=== PATIENT | male | born 1955 | race Caucasian/White ===

== ENCOUNTER 2018-04-09 13:40 | Inpatient (IN) ==
--- NOTE | 2018-04-09 13:54 | Emergency Department Note ---
Disposition Clinical Impression: Fracture of hip Qualifiers: Encounter type: initial encounter Fracture type: closed Laterality: right Qualified Code(s): S72.001A - Fracture of unspecified part of neck of right femur, initial encounter for closed fracture Disposition: Admitted As Inpatient Condition: Good Referrals: Darin Dowell MD [Primary Care Provider] - Forms: ED Satisfaction Letter Time of Disposition: 14:40 General Adult HPI - General Chief complaint: ED Extremity Injury, Lower Stated complaint: right hip injury Time Seen by Provider: 04/09/18 13:45 Source: patient Nursing Notes Reviewed: Yes Vital Signs Reviewed: Yes - History of Present Illness HPI Narrative: Patient presents to the ED with a chief complaint of right leg pain. Patient had a fall. He was inside a full power washing might out of it. He states he fell landed right on his right hip. No pain in his neck no pain in his back. He did not hit his head. No loss of consciousness. - Related Data Home Medications Medication Instructions Recorded Confirmed Citalopram [CeleXA] 20 mg PO DAILY 04/09/18 04/09/18 Levothyroxine [Synthroid] 150 mcg PO DAILY 04/09/18 04/09/18 Allergies Allergy/AdvReac Type Severity Reaction Status Date / Time Sulfa (Sulfonamide Allergy Hives Verified 01/27/16 23:32 Antibiotics) All systems ED: reviewed and negative except as stated. Constitutional: Denies: fever Cardiovascular: Denies: chest pain Respiratory: Denies: dyspnea Past Medical History - Past Medical History Attestation: Yes The following information was validated with the patient. Source: patient Medical history: Reports: cancer, kidney stones, thyroid disease Psychiatric history: Reports: no psych history - Social History Smoking Status: Never smoker Alcohol use: Reports: none Drug use: Reports: none Physical Exam Patient laying on the bed in no acute distress. Right leg shortened and externally rotated. Pain with log rolling. DP and PT pulses intact. - General Limitations: no limitations General appearance: alert, in no apparent distress - Head Head exam: atraumatic - Eye Eye exam: Present: normal appearance - Neck Neck exam: Present: normal inspection. Absent: tenderness - Chest Chest inspection: Present: normal inspection - Respiratory Respiratory exam: Present: normal lung sounds bilaterally - Cardiovascular Cardiovascular exam: Present: regular rate, normal rhythm, normal heart sounds - Abdominal Exam Abdominal exam: Present: soft, Non-Tender, other (Urostomy and colostomy bags.) - Neurological Exam Neurological exam: Present: alert, oriented X3 - Psychiatric Psychiatric exam: Present: normal affect - Skin Skin exam: Present: warm, dry Course - Consultations Consultation #1: Dr Russo consulted by myself. Will see today. Time: 15:14 Consultation #2: Dr Gutierrez accepts Time: 15:48 Vital Signs Temperature 98 F 04/09/18 13:46 Pulse Rate 71 04/09/18 13:46 Respiratory Rate 18 04/09/18 13:46 Blood Pressure 135/75 04/09/18 13:46 O2 Sat by Pulse Oximetry 98 04/09/18 13:46 Temperature 98 F 04/09/18 13:46 Pulse Rate 66 04/09/18 15:45 Respiratory Rate 18 04/09/18 15:45 Blood Pressure 125/67 04/09/18 15:45 O2 Sat by Pulse Oximetry 98 04/09/18 13:46 Oxygen Delivery Oxygen Delivery Room Air Medical Decision Making - Lab Data Result diagrams: 04/09/18 14:49 04/09/18 14:49 Lab Results 04/09/18 04/09/18 Range/Units 14:49 14:49 WBC 20.1 H (4.3-11.1) K/mcL RBC 4.69 (4.19-5.50) M/mcL Hgb 13.7 (12.9-16.9) g/dL Hct 42.4 (37.5-50.1) % MCV 90.4 (83.0-100.0) fL MCH 29.2 (28.0-33.3) pg MCHC 32.3 (31.6-35.5) g/dL RDW 13.5 (11.5-14.5) % Plt Count 230 (140-400) K/mcL MPV 10.1 (9.4-12.4) fL Sodium 139 (136-145) mEq/L Potassium 3.6 (3.5-5.1) mEq/L Chloride 108 H (98-107) mEq/L Carbon Dioxide 27 (23-29) mEq/L BUN 16 (8-23) mg/dL Creatinine 1.23 (0.70-1.30) mg/dL Est GFR ( Amer) > 60 (> 60) Est GFR (Non-Af Amer) 59 L (> 60) BUN/Creatinine Ratio 13 (6-26) Glucose 121 H (70-105) mg/dL Calculated Osmolality 290 (280-300) Calcium 9.2 (8.6-10.3) mg/dL - Radiology Data Radiology results reviewed: Yes I reviewed the patient's radiology results. Femur X-Ray 04/09/18 13:53 IMPRESSION: Acute traumatic closed minimally angulated nondisplaced right intertrochanteric femoral fracture. No hip dislocation. D/ / Cindy Jaffe MD / Cindy Jaffe MD Interpreting Provider: Cindy Jaffe MD Pelvis X-Ray 04/09/18 13:53 IMPRESSION: Acute traumatic closed minimally angulated nondisplaced right intertrochanteric femoral fracture. No hip dislocation. D/ / Cindy Jaffe MD / Cindy Jaffe MD Interpreting Provider: Cindy Jaffe MD Femur X-Ray 04/09/18 13:53 IMPRESSION: Acute traumatic closed minimally angulated nondisplaced right intertrochanteric femoral fracture. No hip dislocation. D/ / Cindy Jafef MD / Cindy Jaffe MD Interpreting Provider: Cindy Jaffe MD Pelvis X-Ray 04/09/18 13:53 IMPRESSION: Acute traumatic closed minimally angulated nondisplaced right intertrochanteric femoral fracture. No hip dislocation. D/ / Cindy Jaffe MD / Cindy Jaffe MD Interpreting Provider: Cindy Jaffe MD Chest X-Ray 04/09/18 14:33 IMPRESSION: No acute process. D/ / Jayson Vasquez MD / Jayson Vasquez MD Interpreting Provider: Jayson Vasquez MD - EKG Data EKG #1 EKG attestation: Yes I reviewed and interpreted this EKG. EKG results narrative: Normal sinus rhythm at 65. No ST segment changes. No T-wave inversions. Normal axis. QT 406 with a QTC of 417. Critical Care Time Critical Care Time: No
[2018-04-09 15:15] LABS: Hematocrit 42.4 % (37.5-50.1); Hemoglobin 13.7 g/dL (12.9-16.9); Mean Corpuscular HGB Conc 32.3 g/dL (31.6-35.5); Mean Corpuscular Hemoglobin 29.2 pg (28.0-33.3); Mean Corpuscular Volume 90.4 fL (83.0-100.0); Mean Platelet Volume 10.1 fL (9.4-12.4); Platelet Count 230 K/mcL (140-400); Red Blood Count 4.69 M/mcL (4.19-5.50); Red Cell Distribution Width 13.5 % (11.5-14.5)
[2018-04-09 15:25] LABS: BUN/Creatinine Ratio 13 (6-26); Blood Urea Nitrogen 16 mg/dL (8-23); Calcium 9.2 mg/dL (8.6-10.3); Carbon Dioxide 27 mEq/L (23-29); Chloride 108 mEq/L (98-107); Glucose 121 mg/dL (70-105); Osmolality,Calculated 290 (280-300); Potassium 3.6 mEq/L (3.5-5.1); Sodium 139 mEq/L (136-145); eGFR For African Americans > 60 (> 60); eGFR For Non-African Americans 59 (> 60)
[2018-04-09] MEDS ORDERED: *HR* FentaNYL (PF) 100 MCG/2 ML VIAL IVP ONE (15:36)
--- NOTE | 2018-04-09 18:56 | Internal Med History&Physical ---
Date of Encounter: 04/09/18 Time of Encounter: 18:00 Internal Medicine - H&P: HPI Chief complaint: Right hip pain Admitted From: Home History of present illness: Patient is a 63-year-old male with past medical history significant for colon cancer, hypothyroid and mood disorder who presents to the ER on 04/09/18 due to right hip pain status post fall. Patient was cleaning pool and they will injuring his right hip. In the ER, imaging showed closed minimally angulated nondisplaced right intertrochanteric femur fracture with no hip is location. Orthopedic was consulted from the ER and patient will be admitted to medical surgical floor. Past Med Surg Social Fam HX - Past Medical History Medical history: cancer, kidney stones, thyroid disease Additional medical history: urostomy, colostomy second to colon cancer, Psychiatric history: no psych history - Past Surgical History Additional surgical history: PROSTATE, BLADDER AND RECTUM REMOVED DUE TO CANCER IN 2011 - Social History Smoking Status: Never smoker Smokeless Tobacco Status: No Alcohol use: none Drug use: none - Family History Mother Name: BRIAN Age: 51 Family Member Ethnicity: Non- Living Status: Age at : 51 Cause of : [place] Hx Family Cardiac Disorders: Yes ([place]) Hx Family Respiratory Disorders: No Hx Family Cancer: No Hx Family GI Disorders: No Hx Family Genitourinary Disorders: No Hx Family Endocrine Disorder: No Hx Family Musculoskeletal Disorders: No Hx Family Neuromuscular Disorders: No Hx Family Neurologic Disorders: No Hx Family HEENT Disorders: No Hx Family Autoimmune Disorders: No Hx Family Reproductive Disorders: No Hx Family Psychosocial Disorders: No Hx Family Medical Disorders: No Internal Medicine - H&P: Meds Citalopram [CeleXA] 20 mg PO DAILY 04/09/18 [History] Cyanocobalamin (Vitamin B-12) [Vitamin B-12] 1,000 mcg PO DAILY 04/09/18 [ History] Levothyroxine [Synthroid] 150 mcg PO DAILY 04/09/18 [History] Vitamin D3 1,000 mcg PO DAILY 04/09/18 [History] 3 Allergy/AdvReac Type Severity Reaction Status Date / Time Sulfa (Sulfonamide Allergy Hives Verified 01/27/16 23:32 Antibiotics) All Systems PM: A 10-system review of systems was performed and is negative for pertinent findings except as documented above in the HPI. - Constitutional Vitals: Temp Pulse Resp BP Pulse Ox 98 F 66 20 124/70 98 04/09/18 13:46 04/09/18 15:45 04/09/18 16:12 04/09/18 16:12 04/09/18 13:46 General appearance: Present: A&O X 3, no acute distress - Eye Eye exam: Present: normal appearance - ENT ENT exam: Present: mucous membranes moist - Respiratory Respiratory exam: Present: CTAB. Absent: accessory muscle use, rales, rhonchi, wheezes - Cardiovascular Cardiovascular exam: Present: RRR, +S1, +S2. Absent: diastolic murmur, gallop, rubs, systolic murmur - Extremities Exam Extremities exam: Absent: pedal edema - Neurological Exam Neurological exam: Present: no focal deficits - Psychiatric Psychiatric exam: Present: normal mood - Skin Skin exam: Present: normal color Internal Med - H&P Results - Labs CBC & Chem 7: 04/09/18 14:49 04/09/18 14:49 - Assessment and plan (1) Fracture of hip Current Visit: Yes Status: Acute Assessment and plan: In the ER, imaging showed closed minimally angulated nondisplaced right intertrochanteric femur fracture with no hip is location. Orthopedics consulted and appreciate recommendations Qualifiers: Encounter type: initial encounter Fracture type: closed Laterality: right Qualified Code(s): S72.001A - Fracture of unspecified part of neck of right femur, initial encounter for closed fracture (2) Hypothyroid Current Visit: Yes Status: Acute Assessment and plan: Continue levothyroxine Qualifiers: Hypothyroidism type: unspecified Qualified Code(s): E03.9 - Hypothyroidism , unspecified (3) Mood disorder Current Visit: Yes Status: Acute Assessment and plan: Continue home medications (4) DVT prophylaxis Current Visit: Yes Status: Acute Assessment and plan: Subcutaneous heparin - Time Spent With Patient Total time spent is greater than 50% in coordination of care (as documented) at patient's floor/unit and/or counseling patient:
[2018-04-09] MEDS ORDERED: Naloxone 0.4 MG/ML INJ IVP PRN (19:07)
[2018-04-09] MEDS ORDERED: Acetaminophen 325 MG TABLET PO PRN (21:10)
[2018-04-09] MEDS ORDERED: *HR* OxyCODONE/APAP 10/325 TABLET PO PRN (21:12)
[2018-04-09] MEDS: *HR* HYDROcodone/Acet 7.5/325 mg TABLET PO PRN (21:25)
[2018-04-09] MEDS: *HR* Heparin 5,000 UNIT/ML VIAL SQ SCH (21:26)
--- NOTE | 2018-04-09 21:28 | Orthopedic Consult Note ---
Date of Encounter: 04/09/18 Time of Encounter: 18:00 Assessment and Plan (1) Fracture of hip Current Visit: Yes Status: Acute I did discuss the diagnosis in detail the patient. He has a right intertrochanteric hip fracture. My recommendation was for internal fixation of the right hip in order to stabilize the right hip for pain control and to help facilitate nursing care. The risks discussed included but were not limited to stiffness, bleeding, infection, blood clots, damage to neurovascular structures , tendons, ligaments, and bone. Also discussed was the risk of continued symptoms and possible need for further procedures. I did discuss the anesthesia risks including stroke, heart attack, and . I did discuss the reasonable, foreseeable postoperative course with the patient. He did wish to proceed and consent was obtained. Qualifiers: Encounter type: initial encounter Fracture type: closed Laterality: right Qualified Code(s): S72.001A - Fracture of unspecified part of neck of right femur, initial encounter for closed fracture History of Present Illness HPI: Mr. Burnett is a 63 year old male who is admitted to the hospitalist after a fall while trying to clean the pool. He sustained a right nondisplaced intertrochanteric hip fracture. I was consulted to assist in the evaluation and management of the patient. He is fairly active at baseline and lives independently. He complains of isolated right groin pain. It is worse with any movement and better with rest. No numbness, tingling, or any other associated signs or symptoms or modifying factors. He denies any other pain or injuries. Past Med Surg Social Fam HX - Past Medical History Medical history: cancer, kidney stones, thyroid disease Additional medical history: urostomy, colostomy second to colon cancer, Psychiatric history: no psych history - Past Surgical History Additional surgical history: PROSTATE, BLADDER AND RECTUM REMOVED DUE TO CANCER IN 2012 - Social History Smoking Status: Never smoker Smokeless Tobacco Status: No Alcohol use: none Drug use: none - Family History Mother Name: BRIAN Age: 51 Family Member Ethnicity: Non- Living Status: Age at : 51 Cause of : [place] Hx Family Cardiac Disorders: Yes ([place]) Hx Family Respiratory Disorders: No Hx Family Cancer: No Hx Family GI Disorders: No Hx Family Genitourinary Disorders: No Hx Family Endocrine Disorder: No Hx Family Musculoskeletal Disorders: No Hx Family Neuromuscular Disorders: No Hx Family Neurologic Disorders: No Hx Family HEENT Disorders: No Hx Family Autoimmune Disorders: No Hx Family Reproductive Disorders: No Hx Family Psychosocial Disorders: No Hx Family Medical Disorders: No Medications and Allergies Citalopram [CeleXA] 20 mg PO DAILY 04/09/18 [History] Cyanocobalamin (Vitamin B-12) [Vitamin B-12] 1,000 mcg PO DAILY 04/09/18 [ History] Levothyroxine [Synthroid] 150 mcg PO DAILY 04/09/18 [History] Vitamin D3 1,000 mcg PO DAILY 04/09/18 [History] 3 Allergy/AdvReac Type Severity Reaction Status Date / Time Sulfa (Sulfonamide Allergy Hives Verified 01/27/16 23:32 Antibiotics) All Systems Reviewed: Constitutional and musculoskeletal systems were reviewed and are negative unless otherwise stated in history of present illness. Physical Exam - Constitutional Vitals: Temp Pulse Resp BP Pulse Ox 99.4 F 75 16 147/68 95 04/09/18 19:28 04/09/18 19:28 04/09/18 19:28 04/09/18 19:28 04/09/18 19:28 Constitutional -Vitals reviewed -The patient is well developed and well nourished. -Mood is pleasant. -The patient is well groomed. Psychiatric -The patient is fully alert and oriented x 3. Respiratory: -Respiratory effort normal Abdomen: -Soft abdomen -Non tender -Non distended: Left upper extremity: -No deformities. The overlying skin is intact. No obvious signs of acute trauma. -No tenderness to palpation throughout. -No significant pain with passive motion of the shoulder, elbow, wrist, and fingers within the limits of the bed. -Able to make an "OK" sign, cross the index and long fingers, and extend the thumb. -Sensation grossly intact to light touch throughout the median, radial, and ulnar distributions. -Radial pulse is present; Fingers have good capillary refill. Right upper extremity: -No deformities. The overlying skin is intact. No obvious signs of acute trauma. -No tenderness to palpation throughout. -No significant pain with passive motion of the shoulder, elbow, wrist, and fingers within the limits of the bed. -Able to make an "OK" sign, cross the index and long fingers, and extend the thumb. -Sensation grossly intact to light touch throughout the median, radial, and ulnar distributions. -Radial pulse is present; Fingers have good capillary refill. Left lower extremity: -No deformities. The overlying skin is intact. No obvious signs of acute trauma. -No tenderness to palpation throughout. -No pain with passive motion of the hip, knee, ankle, and toes within the limits of the bed. -No pain with axial loading of the thigh. -Able to dorsiflex and plantarflex the ankle and toes. -Sensation is grossly intact to light touch throughout the sural, saphenous, superficial peroneal, and deep peroneal distributions. -Toes have good capillary refill. Right lower extremity: -The extremity is shortened and externally rotated. The overlying skin is intact. -There is tenderness in the groin region as well as the proximal lateral thigh. -I did not range the hip due to the known fracture. -No tenderness along the distal thigh, leg, ankle, foot, or toes. -Able to dorsiflex and plantarflex the ankle and toes. -Sensation is grossly intact to light touch throughout the sural, saphenous, superficial peroneal, and deep peroneal distributions. -Toes have good capillary refill. Diagnostic Imaging: I did personally review and interpret x-rays of the right hip and femur which show a nondisplaced intertrochanteric hip fracture Results - Labs Result Diagrams: 04/10/18 01:05 04/10/18 01:05 Labs: Abnormal lab results WBC 20.1 K/mcL (4.3-11.1) H 04/09/18 14:49 Chloride 108 mEq/L (98-107) H 04/09/18 14:49 Est GFR (Non-Af Amer) 59 (> 60) L 04/09/18 14:49 Glucose 121 mg/dL (70-105) H 04/09/18 14:49 All other labs normal. Consult Discharge Plan - Plan Referrals: Darin Dowell MD [Primary Care Provider] -
--- NOTE | 2018-04-09 22:13 | Anesthesia Evaluation PreOp ---
<Kaleb Willson - Last Filed: 04/09/18 22:15> Date of Encounter: 04/09/18 Time of Encounter: 22:11 - Past History Planned Operation: Right Hip Nailing Cardiac History: Denies any Significant Hx Pulmonary History: Denies Any Significant HX RADAR TECHNICIAN History: Other (Mood disorder, Colon/ Bladder CA) Other Medical History: Thyroid (Hypo) Anesthesia History: No Prior Anesthetic Complications, Past Anesthesia (PROSTATE , BLADDER AND RECTUM REMOVED DUE TO CANCER IN 2011, urostomy, colostomy) Alcohol Use: none Drug use: none Medications and Allergies Citalopram [CeleXA] 20 mg PO DAILY 04/09/18 [History] Cyanocobalamin (Vitamin B-12) [Vitamin B-12] 1,000 mcg PO DAILY 04/09/18 [ History] Levothyroxine [Synthroid] 150 mcg PO DAILY 04/09/18 [History] Vitamin D3 1,000 mcg PO DAILY 04/09/18 [History] 3 Allergy/AdvReac Type Severity Reaction Status Date / Time Sulfa (Sulfonamide Allergy Hives Verified 01/27/16 23:32 Antibiotics) - Meds/Allergy Pre-op Review Medications Reviewed: Yes Allergies Reviewed: Yes Beta Blockers on Current Med List: No Anesthesia Results - Labs 04/09/18 14:49 04/09/18 14:49 Anesthesia Exam Vital Signs/O2 Sat, Most Current Temp Pulse Resp BP Pulse Ox 99.4 F 75 16 147/68 93 04/09/18 19:28 04/09/18 19:28 04/09/18 19:28 04/09/18 19:28 04/09/18 21:45 <Linh Bello - Last Filed: 04/10/18 17:37> Date of Encounter: 04/10/18 - Past History Cardiac History: Other (good functional capacity) Pulmonary History: Former smoker (quit 10 years ago) RADAR TECHNICIAN History: Other Anesthesia Results - Labs 04/10/18 01:05 04/10/18 01:05 - Imaging EKG: report reviewed, image reviewed (SR) Anesthesia Exam Last Vital Signs Temp 98.5 F 04/10/18 14:53 Pulse 60 04/10/18 14:53 Resp 16 04/10/18 14:53 BP 149/67 04/10/18 14:53 Pulse Ox 99 04/10/18 14:53 Weight: 66 kg NPO (# of Hours): > 8 hrs - HEENT Pupil (Motor): Pupils equal, EOMI Mallampati: II Teeth: Missing, Poor dentition Oral Opening: Greater than 3 - RADAR TECHNICIAN LOC: Oriented - Cardiac Rhythm: Regular Murmur: None - Pulmonary Breath Sounds: bilateral Clear Respiratory Effort: Symmetrical Anesthesia Assess/Plan ASA Score: 3 Modified Ike Scale for Level of Consciousness: Cooperative, oriented, and tranquil Anesthetic Plan: General Monitoring Plan: Standard Monitors Recovery Plan: PACU
[2018-04-10 01:37] LABS: Basophils # 0.1 K/mcL (0.0-0.2); Basophils % 0.4 %; Eosinophils # 0.1 K/mcL (0.0-0.6); Eosinophils % 0.6 %; Hematocrit 40.5 % (37.5-50.1); Hemoglobin 13.4 g/dL (12.9-16.9); Immature Granulocytes % 0.4 % (0-4); Lymphocytes # 1.7 K/mcL (0.6-4.6); Lymphocytes % 10.7 %; Mean Corpuscular HGB Conc 33.1 g/dL (31.6-35.5); Mean Corpuscular Hemoglobin 29.7 pg (28.0-33.3); Mean Corpuscular Volume 89.8 fL (83.0-100.0); Mean Platelet Volume 10.3 fL (9.4-12.4); Monocytes # 1.2 K/mcL (0.0-1.3); Monocytes % 7.7 %; Neutrophils # 12.5 K/mcL (1.6-8.9); Platelet Count 222 K/mcL (140-400); Red Blood Count 4.51 M/mcL (4.19-5.50); Red Cell Distribution Width 13.4 % (11.5-14.5); Segmented Neutrophils % 80.2 %
[2018-04-10 01:52] LABS: BUN/Creatinine Ratio 12 (6-26); Blood Urea Nitrogen 14 mg/dL (8-23); Calcium 8.9 mg/dL (8.6-10.3); Carbon Dioxide 28 mEq/L (23-29); Chloride 104 mEq/L (98-107); Glucose 119 mg/dL (70-105); Osmolality,Calculated 288 (280-300); Potassium 3.5 mEq/L (3.5-5.1); Sodium 138 mEq/L (136-145); eGFR For African Americans > 60 (> 60); eGFR For Non-African Americans > 60 (> 60)
[2018-04-10] MEDS: *HR* Heparin 5,000 UNIT/ML VIAL SQ SCH ×2 (04:51→13:21)
[2018-04-10] MEDS ORDERED: Cholecalciferol (D-3) 1,000 UNIT TABLET PO SCH (09:00)
[2018-04-10] MEDS ORDERED: Cyanocobalamin (B-12) 1,000 MCG TABLET PO SCH (09:00)
--- NOTE | 2018-04-10 09:26 | Internal Med Progress Note ---
Date of Encounter: 04/10/18 Time of Encounter: 09:23 - Assessment and plan (1) Fracture of hip Current Visit: Yes Status: Acute Assessment and plan: closed minimally angulated nondisplaced right intertrochanteric femur fracture with no hip dislocation. Orthopedics on board and plan for ORIF today evening. Keep patient nothing by mouth, IV fluid normal 75 mL per hour, pain management. Will consult social organization professor for discharge plan and placement. Qualifiers: Encounter type: initial encounter Fracture type: closed Laterality: right Qualified Code(s): S72.001A - Fracture of unspecified part of neck of right femur, initial encounter for closed fracture (2) Hypothyroid Current Visit: Yes Status: Acute Assessment and plan: Continue levothyroxine Qualifiers: Hypothyroidism type: unspecified Qualified Code(s): E03.9 - Hypothyroidism , unspecified (3) Mood disorder Current Visit: Yes Status: Acute Assessment and plan: Stable. Continue home medications (4) DVT prophylaxis Current Visit: Yes Status: Acute Assessment and plan: Subcutaneous heparin, SCDs - Time Spent With Patient Total time spent is greater than 50% in coordination of care (as documented) at patient's floor/unit and/or counseling patient: 25 - 35 minutes - Subjective Interval history: Patient complained of mild tolerable pain at rest in the right hip. Denies fever chills nausea vomiting headache dizziness chest pain shortness of breath urinary or bowel complaint. Patient is nothing by mouth now. - Constitutional Vitals: Temp Pulse Resp BP Pulse Ox 98.6 F 61 18 141/72 98 04/10/18 06:28 04/10/18 06:28 04/10/18 06:28 04/10/18 06:28 04/10/18 06:28 General appearance: Present: A&O X 3, no acute distress Exam: General appearance: No acute distress, A&O X 3 Head exam: Atraumatic Eye exam: EOMI, PERRLA ENT exam: Moist oral mucosa Neck nontender, supple Respiratory exam: Clear to auscultation bilaterally Cardiovascular exam: Regular rate and rhythm, no systolic murmur Abdominal exam: Soft, nontender, nondistended, positive bowel sounds Extremities exam: No calf tenderness, no pedal edema Present,Peripheral pulses palpable. Right hip tenderness but no open wound Skin-no rash, warm, dry, intact Neurological exam: Alert, awake, oriented 3, CN II-XII intact, no focal deficits. No facial droop. Normal speech. Internal Medicine: Result - Labs CBC & Chem 7: 04/10/18 01:05 04/10/18 01:05 Labs: Short CBC 04/10/18 Range/Units 01:05 WBC 15.6 H (4.3-11.1) K/mcL Hgb 13.4 (12.9-16.9) g/dL Hct 40.5 (37.5-50.1) % Plt Count 222 (140-400) K/mcL Neutrophils # 12.5 H (1.6-8.9) K/mcL BMP 04/10/18 01:05 Sodium 138 Potassium 3.5 Chloride 104 Carbon Dioxide 28 BUN 14 Creatinine 1.18 Glucose 119 H Calcium 8.9 Consult Discharge Plan - Plan Referrals: Darin Dowell MD [Primary Care Provider] -
[2018-04-10] MEDS ORDERED: 0.9 % Sodium Chloride 1,000 ML IVC SCH (09:30)
[2018-04-10] MEDS: *HR* HYDROcodone/Acet 7.5/325 mg TABLET PO PRN (15:13)
[2018-04-10] MEDS ORDERED: Lidocaine -MPF 2% 2 ML VIAL ONE (17:40)
[2018-04-10] MEDS ORDERED: *HR* Rocuronium Bromide 50 MG/5 ML VIAL ONE (17:40)
[2018-04-10] MEDS ORDERED: Dexamethasone 4 MG/ML VIAL ONE (17:40)
[2018-04-10] MEDS ORDERED: Ondansetron 4 MG/2 ML VIAL ONE (17:40)
[2018-04-10] MEDS ORDERED: *HR* FentaNYL (PF) 100 MCG/2 ML VIAL ONE (17:41)
[2018-04-10] MEDS ORDERED: *HR* Propofol 200 MG/20 ML VIAL IVP ONE (17:41)
--- NOTE | 2018-04-10 17:52 | Electrocardiograph Report ---
[place] [id number] Test Date: 2018-04-09 Pat Name: Jerardo Burnett Department: 103 Room: [facility] Gender: M Land Title Examiner: FREDY : 1955 Requested By: Ariana See Order Number: [id number] Reading MD: Jerry Anderson Measurements Intervals [place] Rate: 65 P: 82 AL: 190 QRS: 83 QRSD: 102 T: 66 QT: 406 QTc: 417 Interpretive Statements SINUS RHYTHM Electronically Signed On 04-10-2018 17:51:03 EDT by Jerry Anderson
[2018-04-10] MEDS ORDERED: Acetaminophen IV 1,000 MG/100 ML INFUS..BTL ONE (18:00)
[2018-04-10] MEDS ORDERED: *HR* Promethazine 25 MG/ML VIAL IVP PRN ×2 (18:44→20:19)
[2018-04-10] MEDS ORDERED: *HR* OxyCODONE Immed Rel 5 MG TABLET PO PRN ×2 (18:44→20:19)
[2018-04-10] MEDS ORDERED: MORPHINE SUL Oral CONC 10 MG/0.5 ML ORAL.SYG SL PRN ×2 (18:44→20:19)
[2018-04-10] MEDS ORDERED: *HR* Labetalol 20 MG/4 ML SYRINGE IVP PRN (18:44)
[2018-04-10] MEDS ORDERED: *HR* Meperidine 25 MG/ML SYRINGE IVP PRN ×2 (18:44→20:19)
[2018-04-10] MEDS ORDERED: EPHEDrine 50 MG/ML VIAL ONE (19:01)
[2018-04-10] MEDS ORDERED: Neostigmine Methylsulfate 3 MG/3 ML SYRINGE ONE (19:04)
--- NOTE | 2018-04-10 19:46 | Orthopedic Operative Note ---
Date of procedure: 04/10/18 Procedure: OPERATIVE REPORT DATE OF PROCEDURE: 04/10/2018 SURGEON: Timothy Russo MD ELEVATOR STARTER(S): There were no assistants PREOPERATIVE DIAGNOSIS: Right intertrochanteric hip fracture POSTOPERATIVE DIAGNOSIS: Right intertrochanteric hip fracture PROCEDURE: Reduction and medullary nail fixation of the right hip ANESTHESIA: Gen. anesthesia PREOPERATIVE ANTIBIOTICS: 2 g of Ancef ESTIMATED BLOOD LOSS: 100 milliliters IMPLANTS: [place] 10 mm short nail with 125 degree lag screw angle; 105 mm lag screw PREOPERATIVE NOTE AND INDICATIONS: This patient is a 63-year-old male who sustained a right intertrochanteric hip fracture. He is indicated for surgery to reduce and stabilize the hip in order to provide pain control and to help facilitate nursing care. The surgical plan was discussed with the patient. The risks, benefits, alternatives, and potential complications of this procedure were discussed with the patient including injury to veins, arteries, nerves, tendons, ligaments, and bone. Also discussed were the risks of infection, bleeding, pain, blood clots, the possible need for a blood transfusion, the possible need for further procedures, heart attack, stroke, and . Additional risks include malunion , nonunion, hardware failure, and hardware irritation. All of this was explained in simple terms, and the patient verbalized understanding and wished to proceed. Consent was given to proceed with surgery. PROCEDURE: The patient was seen in the preoperative holding area where the identify and the consent were confirmed. The right hip was marked. Final questions were answered. The patient was brought back to the operating room and general anesthesia was administered. He was placed supine on the operating room table. The left lower extremity was lowered out of the way and the right lower shoulder moves placed in traction internal rotation and adduction. A huddle was performed with the patient and all vital surgical team members confirming patient identity, the correct procedure, and the correct operative site. The right hip was prepped and draped in the usual sterile fashion. A surgical time out was performed immediately preceding the incision with all personnel in the operating room to confirm patient identity, the correct operative site and extremity, correct radiographic studies, availability of appropriate surgical equipment, and agreement on the planned procedure. A longitudinal incision was made superior to the greater trochanter and dissection proceeded through the fascia. The guidewire was placed in the proximal femur and this was opened up. Reaming was done at 9 mm, 10 mm, and 11 mm and the definitive 10 mm nail was placed into the shaft of the femur. A second incision was made and the triple sleeve was used to place a guidewire into the femoral head. This was measured, drilled, and the definitive lag screw was placed. The fracture was then compressed and locked proximally. The second triple sleeve was used after a third incision and a definitive interlocking screw was placed in static mode. The wounds were copiously irrigated and the fascia was closed with 0 Vicryl stitches. The skin was closed with 3-0 Vicryl and edward. The patient was taken off the traction table and placed on his regular bed in good condition. The instrument, sponge, and needle counts were correct after wound closure. POST OPERATIVE PLAN: Weight Bearing: Weightbearing as tolerated to bilateral lower extremities DVT Prophylaxis: Ambulation Activity: Activities as tolerated with assistance Wound Care: Daily dressing changes Pain Control: Per the hospitalist Perioperative antibiotic prophylaxis: 2 doses of Ancef Social work for discharge planning Was there an expanded function dental assistant present: No Estimated blood loss (cc): 1
[2018-04-10] MEDS ORDERED: Acetaminophen 325 MG TABLET PO PRN (20:19)
[2018-04-10] MEDS ORDERED: *HR* OxyCODONE/APAP 10/325 TABLET PO PRN (20:19)
[2018-04-10] MEDS ORDERED: *HR* Labetalol 100 MG/20 ML MDV IVP PRN (20:19)
[2018-04-10] MEDS ORDERED: Naloxone 0.4 MG/ML INJ IVP PRN (20:19)
[2018-04-10] MEDS: 0.9 % Sodium Chloride 1,000 ML IVC SCH (20:30)
[2018-04-11 01:35] LABS: Hematocrit 36.9 % (37.5-50.1); Hemoglobin 11.9 g/dL (12.9-16.9)
[2018-04-11 01:56] LABS: BUN/Creatinine Ratio 11 (6-26); Blood Urea Nitrogen 14 mg/dL (8-23); Calcium 8.5 mg/dL (8.6-10.3); Carbon Dioxide 27 mEq/L (23-29); Chloride 103 mEq/L (98-107); Glucose 143 mg/dL (70-105); Osmolality,Calculated 287 (280-300); Potassium 3.4 mEq/L (3.5-5.1); Sodium 137 mEq/L (136-145); eGFR For African Americans > 60 (> 60); eGFR For Non-African Americans 60 (> 60)
[2018-04-11] MEDS: 0.9 % Sodium Chloride 1,000 ML IVC SCH (06:05)
--- NOTE | 2018-04-11 07:49 | Orthopedics Progress Note ---
Date of Encounter: 04/11/18 Time of Encounter: 07:48 - Assessment and Plan (1) Fracture of hip Current Visit: Yes Status: Acute I did discuss the diagnosis in detail the patient. He has a right intertrochanteric hip fracture. My recommendation was for internal fixation of the right hip in order to stabilize the right hip for pain control and to help facilitate nursing care. The risks discussed included but were not limited to stiffness, bleeding, infection, blood clots, damage to neurovascular structures , tendons, ligaments, and bone. Also discussed was the risk of continued symptoms and possible need for further procedures. I did discuss the anesthesia risks including stroke, heart attack, and . I did discuss the reasonable, foreseeable postoperative course with the patient. He did wish to proceed and consent was obtained. Qualifiers: Encounter type: initial encounter Fracture type: closed Laterality: right Qualified Code(s): S72.001A - Fracture of unspecified part of neck of right femur, initial encounter for closed fracture Subjective Interval history: S: Resting comfortably in bed. Significant improvement of the right hip O: Afebrile on the vital signs are stable Right hip dressing is clean, dry, and intact Neurovascularly intact to the right lower extremity X-rays show good position of the hip nail A: Post internal fixation of the right hip P: Weight bearing as tolerated on the bilateral lower extremities Physical therapy and occupational therapy when able Aspirin 325 mg by mouth twice a day for DVT prophylaxis Objective Vital signs: Vital Signs Temp Pulse Resp BP Pulse Ox 04/11/18 06:32 98.0 F 67 16 131/69 99 04/11/18 04:05 98.0 F 66 14 125/68 97 04/11/18 00:00 97.6 F 70 16 119/67 97 04/10/18 22:45 65 16 134/70 96 04/10/18 21:45 69 18 143/63 96 04/10/18 21:10 67 16 138/73 96 04/10/18 20:33 97.2 F L 61 16 145/70 99 04/10/18 20:00 98.1 F 64 18 158/79 98 04/10/18 19:50 92 18 158/71 98 04/10/18 19:40 62 18 145/82 97 04/10/18 19:30 99.2 F 73 12 135/83 95 04/10/18 14:53 98.5 F 60 16 149/67 99 04/10/18 11:37 98.4 F 65 14 143/81 96 Intake and Output 04/10/18 04/10/18 04/11/18 15:59 23:59 07:59 Intake Total 1100 / 1100 Output Total 200 / 200 350 / 350 300 / 300 Balance -200 / -200 -350 / -350 800 / 800 Intake: IV Fluids 1100 / 1100 0.9 % Sodium Chloride 1,000 ML 1000 / 1000 @ 75 mls/hr IVC .[id number] [facility] Rx #:[id number] Ancef 2,000 MG In 0.9 % Sodium 100 / 100 Chloride 100 ML @ 200 mls/hr IVPB Q8HR [facility] Rx#:[id number] Output: Estimated Blood Loss 100 / 100 Urostomy 200 / 200 250 / 250 300 / 300 - Labs CBC & BMP: 04/11/18 01:08 04/11/18 01:08 Labs: Abnormal lab results WBC 15.6 K/mcL (4.3-11.1) H 04/10/18 01:05 Hgb 11.9 g/dL (12.9-16.9) L D 04/11/18 01:08 Hct 36.9 % (37.5-50.1) L 04/11/18 01:08 Neutrophils # 12.5 K/mcL (1.6-8.9) H 04/10/18 01:05 Potassium 3.4 mEq/L (3.5-5.1) L 04/11/18 01:08 Glucose 143 mg/dL (70-105) H 04/11/18 01:08 Calcium 8.5 mg/dL (8.6-10.3) L 04/11/18 01:08 - VTE Documentation of Mechanical Device: Intermittent pneumatic compression device Consult Discharge Plan - Plan Referrals: Darin Dowell MD [Primary Care Provider] -
[2018-04-11] MEDS: Cholecalciferol (D-3) 1,000 UNIT TABLET PO SCH (07:54)
[2018-04-11] MEDS: Cyanocobalamin (B-12) 1,000 MCG TABLET PO SCH (07:54)
--- NOTE | 2018-04-11 08:46 | Internal Med Progress Note ---
Date of Encounter: 04/11/18 Time of Encounter: 08:42 - Assessment and plan (1) Fracture of hip Current Visit: Yes Status: Acute Assessment and plan: closed minimally angulated nondisplaced right intertrochanteric femur fracture with no hip dislocation. Orthopedics on board and had ORIF on 04/10/2018. Postop day 1 -recovering well. Tolerating oral diet. Physiotherapist on board will follow the recommendation when patient bradycardia for outpatient versus inpatient rehabilitation. Continue DVT prophylaxis aspirin 325 mg by mouth twice a day for total 28 days as per ortho recommendation and confirmed on phone. piece worker on board. Will stop IV fluid. Pain is well controlled at this time on rest. piece worker on board to make discharge plan Qualifiers: Encounter type: initial encounter Fracture type: closed Laterality: right Qualified Code(s): S72.001A - Fracture of unspecified part of neck of right femur, initial encounter for closed fracture (2) Hypothyroid Current Visit: Yes Status: Acute Assessment and plan: Continue levothyroxine Qualifiers: Hypothyroidism type: unspecified Qualified Code(s): E03.9 - Hypothyroidism , unspecified (3) Mood disorder Current Visit: Yes Status: Acute Assessment and plan: Stable. Continue home medications (4) DVT prophylaxis Current Visit: Yes Status: Acute Assessment and plan: SCDs, aspirin 325 mg twice a day - Time Spent With Patient Total time spent is greater than 50% in coordination of care (as documented) at patient's floor/unit and/or counseling patient: - Subjective Interval history: Patient is sitting comfortably on bed and having his breakfast. Physiotherapist team in the room. His pain is well controlled at rest. Review the lab. Denies fever chills nausea vomiting headache dizziness chest pain shortness of breath urinary or bowel complaint. - Constitutional Vitals: Temp Pulse Resp BP Pulse Ox 98.0 F 67 16 131/69 99 04/11/18 06:32 04/11/18 06:32 04/11/18 06:32 04/11/18 06:32 04/11/18 06:32 General appearance: Present: A&O X 3, no acute distress Exam: General appearance: No acute distress, A&O X 3 Head exam: Atraumatic Eye exam: EOMI, PERRLA ENT exam: Moist oral mucosa Neck nontender, supple Respiratory exam: Clear to auscultation bilaterally Cardiovascular exam: Regular rate and rhythm, no systolic murmur Abdominal exam: Soft, nontender, nondistended, positive bowel sounds Extremities exam: No calf tenderness, no pedal edema Present: Right hip tenderness. Clean surgical incision. Skin-no rash, warm, dry, intact Neurological exam: Alert, awake, oriented 3, CN II-XII intact, no focal deficits. No facial droop. Normal speech. Internal Medicine: Result - Labs CBC & Chem 7: 04/11/18 01:08 04/11/18 01:08 Labs: Short CBC 04/11/18 Range/Units 01:08 Hgb 11.9 L D (12.9-16.9) g/dL Hct 36.9 L (37.5-50.1) % BMP 04/11/18 01:08 Sodium 137 Potassium 3.4 L Chloride 103 Carbon Dioxide 27 BUN 14 Creatinine 1.22 Glucose 143 H Calcium 8.5 L - Impressions Impressions Fluoroscopy 04/10/18 18:07 IMPRESSION: Intraprocedural fluoroscopic spot images as above. See separate procedure report for more information. D/ / Justus Rodriguez MD / Justus Rodriguez MD Interpreting Provider: Justus Rodriguez MD Hip X-Ray 04/10/18 18:07 IMPRESSION: Intraprocedural fluoroscopic spot images as above. See separate procedure report for more information. D/ / Justus Rodriguez MD / Justus Rodriguez MD Interpreting Provider: Justus Rodriguez MD Hip X-Ray 04/10/18 19:35 IMPRESSION: Expected postoperative findings status post TFN fixation of the right hip. D/ / Conor Leyva / Conor Leyva Interpreting Provider: Conor Leyva - VTE Documentation of Mechanical Device: Intermittent pneumatic compression device Consult Discharge Plan - Plan Referrals: Darin Dowell MD [Primary Care Provider] -
[2018-04-11] MEDS: *HR* HYDROcodone/Acet 7.5/325 mg TABLET PO PRN (16:04)
[2018-04-11] MEDS ORDERED: Aspirin Enteric Coated 325 MG Tablet PO ONE (17:45)
--- NOTE | 2018-04-11 18:23 | Electrocardiograph Report ---
[address] [address] Test Date: 2018-04-10 Pat Name: Jerardo Burnett Department: 114 Room: [facility] Gender: M Director Of Accounting: : 1955 Requested By: Jhonatan Gutierrez Order Number: [id number] Reading MD: Rufino Rosario Measurements Intervals Mcdonald Rate: 59 P: 73 WA: 161 QRS: 75 QRSD: 100 T: 57 QT: 405 QTc: 404 Interpretive Statements SINUS BRADYCARDIA Electronically Signed On 04-11-2018 18:22:08 EDT by Rufino Rosario
[2018-04-11] MEDS ORDERED: *HR* Enoxaparin 40 MG/0.4 ML SYRINGE SQ ONE (19:14)
--- NOTE | 2018-04-11 19:38 | Orthopedics Progress Note ---
Date of Encounter: 04/11/18 Time of Encounter: 17:00 - Assessment and Plan (1) Fracture of hip Current Visit: Yes Status: Acute Qualifiers: Encounter type: initial encounter Fracture type: closed Laterality: right Qualified Code(s): S72.001A - Fracture of unspecified part of neck of right femur, initial encounter for closed fracture Subjective Interval history: S: Resting comfortably in bed. Has been up with therapy and has taken steps. O: Afebrile on the vital signs are stable Right hip dressing is clean, dry, and intact Neurovascularly intact to the right lower extremity A: Post internal fixation of the right hip P: Weight bearing as tolerated on the bilateral lower extremities Continue physical therapy and occupational therapy Recommending home with home health care Orthopedically stable for discharge The patient says he is unable to take aspirin due to his prior GI issues and therefore my recommendation for DVT prophylaxis as well as Lovenox 40 mg subcutaneously for 28 days after surgery. Follow-up with me on postoperative week 2 for staple removal. Objective Vital signs: Vital Signs Temp Pulse Resp BP Pulse Ox 04/11/18 18:33 99.1 F 76 16 139/65 95 04/11/18 15:47 99.1 F 75 16 145/65 99 04/11/18 10:28 98.5 F 76 16 133/70 95 04/11/18 06:32 98.0 F 67 16 131/69 99 04/11/18 04:05 98.0 F 66 14 125/68 97 04/11/18 00:00 97.6 F 70 16 119/67 97 04/10/18 22:45 65 16 134/70 96 04/10/18 21:45 69 18 143/63 96 04/10/18 21:10 67 16 138/73 96 04/10/18 20:33 97.2 F L 61 16 145/70 99 04/10/18 20:00 98.1 F 64 18 158/79 98 04/10/18 19:50 92 18 158/71 98 04/10/18 19:40 62 18 145/82 97 Intake and Output 04/11/18 04/11/18 04/11/18 07:59 15:59 23:59 Intake Total 1100 / 1100 480 / 480 50 / 50 Output Total 300 / 300 1450 / 1450 800 / 800 Balance 800 / 800 -970 / -970 -750 / -750 Intake: IV Fluids 1100 / 1100 0.9 % Sodium Chloride 1,000 ML 1000 / 1000 @ 75 mls/hr IVC .[id number] [facility] Rx #:[id number] Ancef 2,000 MG In 0.9 % Sodium 100 / 100 Chloride 100 ML @ 200 mls/hr IVPB Q8HR [facility] Rx#:[id number] Oral 480 / 480 50 / 50 Output: Stool 325 / 325 250 / 250 Urostomy 300 / 300 1125 / 1125 550 / 550 Other: Meal Lunch Percent of Meal Consumed 100% Stool Size Large Stool Consistency loose Stool Color Brown Yellow - Labs CBC & BMP: 04/11/18 01:08 04/11/18 01:08 Labs: Abnormal lab results WBC 15.6 K/mcL (4.3-11.1) H 04/10/18 01:05 Hgb 11.9 g/dL (12.9-16.9) L D 04/11/18 01:08 Hct 36.9 % (37.5-50.1) L 04/11/18 01:08 Neutrophils # 12.5 K/mcL (1.6-8.9) H 04/10/18 01:05 Potassium 3.4 mEq/L (3.5-5.1) L 04/11/18 01:08 Glucose 143 mg/dL (70-105) H 04/11/18 01:08 Calcium 8.5 mg/dL (8.6-10.3) L 04/11/18 01:08 - VTE Documentation of Mechanical Device: Intermittent pneumatic compression device Consult Discharge Plan - Plan Additional Instructions: [facility] DISCHARGE INSTRUCTIONS Dr. Russo PROCEDURE PERFORMED Reduction and fixation of right hip. Incision care -Daily dressing changes to the right hip with dry gauze and either paper tape or medipore tape. -Avoid soaking wound in water (no hot tubs, bathtubs, swimming pools). -May shower after 2 weeks from surgery date. Carefully wash incision with soap and water. Gently pat it dry. Don't rub the incision, or apply creams or lotions. Sit on a shower stool when showering to keep from falling. Weight bearing status -Weightbearing as tolerated to the bilateral lower extremities. Medications -Pain medication per the discharging medical doctor -Lovenox 40 mg taken subcutaneously daily for 28 days following the day of the surgery Other -Knee high TISH hose 23 hours per day -Consult physical and occupational therapy for mobilization. -Up to chair with assistance at least twice per day. -Follow up with your primary care physician to discuss testing for bone mineral density. Follow-up with Dr. Russo at the office 2 weeks from the surgery date for a post operative evaluation. Call the office at [phone] to schedule appointment. Referrals: Darin Dowell MD [Primary Care Provider] -
[2018-04-11] MEDS: *HR* Enoxaparin 40 MG/0.4 ML SYRINGE SQ SCH (20:14)
[2018-04-11] MEDS ORDERED: Aspirin Enteric Coated 325 MG Tablet PO SCH (21:00)
[2018-04-12] MEDS: *HR* HYDROcodone/Acet 7.5/325 mg TABLET PO PRN (01:11)
[2018-04-12 01:45] LABS: Hematocrit 33.4 % (37.5-50.1); Hemoglobin 10.8 g/dL (12.9-16.9)
[2018-04-12] MEDS: *HR* Enoxaparin 40 MG/0.4 ML SYRINGE SQ SCH (05:25)
[2018-04-12] MEDS ORDERED: *HR* Enoxaparin 40 MG/0.4 ML SYRINGE SQ SCH (06:00)
[2018-04-12] MEDS: Cyanocobalamin (B-12) 1,000 MCG TABLET PO SCH (08:11)
[2018-04-12] MEDS: Cholecalciferol (D-3) 1,000 UNIT TABLET PO SCH (08:11)
--- NOTE | 2018-04-12 09:54 | Discharge Summary ---
- NOTES TO OUTPATIENT PROVIDER Notes to Outpatient Provider: Discharge patient home with home health care continue PT OT. Continue Lovenox subcutaneous for DVT prophylaxis total 28 days as the day of surgery. Follow the discharge instruction as per orthopedics and follow-up appointment in 2 weeks. Follow with PCP in 1-2 weeks Orders not resulted at time of discharge: Pending orders 04/13/18 04:00 BMP [Basic Metabolic Panel] AM 0400 Complete Blood Count [HEME] AM 0400 Hemoglobin and Hematocrit [HEME] AM 0400 Date of Encounter: 04/13/18 Time of Encounter: 09:50 - Discharge Diagnosis (1) Fracture of hip Priority: Primary Status: Acute Assessment and Plan: closed minimally angulated nondisplaced right intertrochanteric femur fracture with no hip dislocation. Orthopedics on board and had ORIF on 04/10/2018. Postop day 2 -recovering well. Tolerating oral diet. Physiotherapist on board and advise to continue PT OT with home health care. casino gaming worker was consulted for discharge plan. Continue DVT prophylaxis with Lovenox 40 mg subcutaneous daily for total 28 days after the surgery day. Follow of discharge instruction as per orthopedics with follow-up in 2 weeks. Will discharge patient on [place] 5 mg every 8 hours as needed for pain management. At the time of discharge his pain is well controlled and doing well with PT and hemodynamically stable. Qualifiers: Encounter type: initial encounter Fracture type: closed Laterality: right Qualified Code(s): S72.001A - Fracture of unspecified part of neck of right femur, initial encounter for closed fracture (2) Hypothyroid Priority: Secondary Status: Acute Assessment and Plan: Continue levothyroxine Qualifiers: Hypothyroidism type: unspecified Qualified Code(s): E03.9 - Hypothyroidism , unspecified (3) Mood disorder Priority: Secondary Status: Acute Assessment and Plan: Stable. Continue home medications Hospital course: Mr. Burnett is a 63 year old male with no significant past medical history got admitted for right hip fracture. Orthopedic was consulted and he underwent ORIF procedure. Postoperative recovery has been well and plan to discharge with home health care on PT OT and follow-up with orthopedic patient. Please see detail the diagnosis part of the discharge summary. Discharge discussed with: patient, nurse - Time Spent with Patient Total time spent providing and/or coordinating discharge services: - Discharge Medications Prescriptions: Enoxaparin [Lovenox] 40 mg SQ 0600 #28 syringe HYDROcodone/Acet 5/325 mg [[place] 5-325 mg] 1 tab PO Q8H PRN 4 Days #12 tab PRN Reason: Pain Home Medications: Citalopram [CeleXA] 20 mg PO DAILY 04/09/18 [History] Cyanocobalamin (Vitamin B-12) [Vitamin B-12] 1,000 mcg PO DAILY 04/09/18 [ History] Levothyroxine [Synthroid] 150 mcg PO DAILY 04/09/18 [History] Vitamin D3 1,000 mcg PO DAILY 04/09/18 [History] Enoxaparin [Lovenox] 40 mg SQ 0600 #28 syringe 04/12/18 [Rx] HYDROcodone/Acet 5/325 mg [[place] 5-325 mg] 1 tab PO Q8H PRN 4 Days #12 tab 04/12 [Rx] Allergies/Adverse Reactions: 3 Allergy/AdvReac Type Severity Reaction Status Date / Time Sulfa (Sulfonamide Allergy Hives Verified 01/27/16 23:32 Antibiotics) Date of admission: 04/09/18 19:07 Primary care physician: Darin Dowell MD Consults: 04/10/18 20:19 Consult to Occupational Therapy [CONS] Routine Comment: Evaluate, develop and implement POC Reason for Consult: post hip surgery Does patient have active BEDREST order?: No Is patient medically & hemodynamically stable?: Yes Consult to Orthopedic Navigator [CONS] [CONS] Routine Consult to Physical Therapy [CONS] Routine Comment: Evaluate, develop and implement POC Reason for Consult: post hip surgery Does patient have active BEDREST order?: No Is patient medically & hemodynamically stable?: Yes Consult to Customer Energy Specialist [CONS] Routine Reason for SW Consult: post -op hip fracture RT Post Op Consult [CONS] Routine - Constitutional Vitals: Temp Pulse Resp BP Pulse Ox 98.4 F 63 16 146/73 99 04/12/18 06:37 04/12/18 06:37 04/12/18 06:37 04/12/18 06:37 04/12/18 06:37 General appearance: Present: A&O X 3, no acute distress Exam: General appearance: No acute distress, A&O X 3 Head exam: Atraumatic Eye exam: EOMI, PERRLA ENT exam: Moist oral mucosa Neck nontender, supple Respiratory exam: Clear to auscultation bilaterally Cardiovascular exam: Regular rate and rhythm, no systolic murmur Abdominal exam: Soft, nontender, nondistended, positive bowel sounds Extremities exam: No calf tenderness, no pedal edema Present: Hip tenderness that is expected. Clean surgical incision. Skin-no rash, warm, dry, intact Neurological exam: Alert, awake, oriented 3, CN II-XII intact, no focal deficits. No facial droop. Normal speech. - Patient Status Disposition: Home Health Service Condition: Good Functional capacity at discharge: uses cane/walker Overall status at discharge: patient is not back to baseline - Discharge Instructions Follow Up With: Darin Dowell MD [Primary Care Provider] - Timothy Russo MD [Partnered Physician] - (Webrequest submitted 04/12/18) Additional Instructions: [facility] DISCHARGE INSTRUCTIONS Dr. Russo PROCEDURE PERFORMED Reduction and fixation of right hip. Incision care -Daily dressing changes to the right hip with dry gauze and either paper tape or medipore tape. -Avoid soaking wound in water (no hot tubs, bathtubs, swimming pools). -May shower after 2 weeks from surgery date. Carefully wash incision with soap and water. Gently pat it dry. Don't rub the incision, or apply creams or lotions. Sit on a shower stool when showering to keep from falling. Weight bearing status -Weightbearing as tolerated to the bilateral lower extremities. Medications -Pain medication per the discharging medical doctor -Lovenox 40 mg taken subcutaneously daily for 28 days following the day of the surgery Other -Knee high TISH hose 23 hours per day -Consult physical and occupational therapy for mobilization. -Up to chair with assistance at least twice per day. -Follow up with your primary care physician to discuss testing for bone mineral density. Follow-up with Dr. Russo at the office 2 weeks from the surgery date for a post operative evaluation. Call the office at [phone] to schedule appointment. Please follow up with PCP within 1-2 weeks. - Diet and Activity Activity: as per physical therapy Diet: advance to your usual diet - VTE Documentation of Mechanical Device: Intermittent pneumatic compression device
--- NOTE | 2018-04-12 10:10 | Physician Discharge Referral ---
Home Health/Hosp Referral Info Transfer to: Home Health Provider in Charge Post Discharge: PCP (Follow with orthopedic addition) - Diagnosis (1) Fracture of hip Priority: Primary Status: Acute (2) Hypothyroid Priority: Secondary Status: Acute (3) Mood disorder Priority: Secondary Status: Acute - Respiratory Orders Smoking Cessation: Smoking cessation has been advised. For more information, call the [place] Tobacco Quit Line at 6-148-ZFPD-NOW. - Services Needed Following services are medically necessary services: Home Health Aide, Physical Therapy, Occupational Therapy - Transfer Medications Prescriptions: Enoxaparin [Lovenox] 40 mg SQ 0600 #28 syringe HYDROcodone/Acet 5/325 mg [[place] 5-325 mg] 1 tab PO Q8H PRN 4 Days #12 tab PRN Reason: Pain Home Medications: Citalopram [CeleXA] 20 mg PO DAILY 04/09/18 [History] Cyanocobalamin (Vitamin B-12) [Vitamin B-12] 1,000 mcg PO DAILY 04/09/18 [ History] Levothyroxine [Synthroid] 150 mcg PO DAILY 04/09/18 [History] Vitamin D3 1,000 mcg PO DAILY 04/09/18 [History] Enoxaparin [Lovenox] 40 mg SQ 0600 #28 syringe 04/12/18 [Rx] HYDROcodone/Acet 5/325 mg [[place] 5-325 mg] 1 tab PO Q8H PRN 4 Days #12 tab 04/12 [Rx] Allergies/Adverse Reactions: 3 Allergy/AdvReac Type Severity Reaction Status Date / Time Sulfa (Sulfonamide Allergy Hives Verified 01/27/16 23:32 Antibiotics) Certification: Further, I certify that my clinical findings support that this patient is homebound (i.e. absences from home require considerable and taxing effort and are for medical reasons or sikhism services or infrequently or short duration when for other reasons) because: Homebound Reason: Patient requires assistance of a person or device to safely leave home Attestation: My signature below is to certify that this patient is under my care and that I, or nurse practitioner, or a physician's culinary assistant working with me, has a face-to -face encounter with this patient.
[2018-04-12 11:55] VITALS: BP 144/78
== END 2018-04-12 12:15 | disposition home health service (06) | DRG 482 ==
LOC: EMEROO 13:40 → 3NENU 13:40
PROVIDERS: ADMIT Hospitalist; ATTEND Hospitalist